=== PATIENT | male | born 1995 | race Caucasian/White ===

== ENCOUNTER 2024-05-11 09:37 | Outpatient (CLI) | payer OTHER, SELFPAY ==
[2024-05-11 19:33] LABS: Trichomonas Vag PCR NOT DETECTED (NOT DETECTE)
[2024-05-11 19:38] LABS: Alanine Aminotransferase 22 U/L (6-50); Alkaline Phosphatase 77 U/L (38-126); Anion Gap 10 mmol/L (4-12); Aspartate Amino Transferase 38 U/L (17-59); Bilirubin,Total 0.7 mg/dL (0.2-1.3); Blood Urea Nitrogen 12 mg/dL (9-20); Calcium 9.5 mg/dL (8.4-10.2); Carbon Dioxide 27 mmol/L (22-30); Chloride 98 mmol/L (98-107); Cholesterol 268 mg/dL (0-200); Estimated Glomerular Filt Rate > 60; Glucose 308 mg/dL (65-110); HDL Direct 35 mg/dL; Potassium 3.7 mmol/L (3.4-5.0); Sodium 135 mmol/L (137-145); Triglycerides 384 mg/dL (<150)
[2024-05-11 19:40] LABS: HIV 1/2 Ab P24 Ag Result Negative (Negative)
[2024-05-11 19:44] LABS: MALB Creatinine Ratio 92.9 mg/g (0-30); Microalbumin Urine Random 168.2 mg/L (0-16.7)
[2024-05-11 19:47] LABS: Hepatitis C Virus Antibody Negative (Negative)
[2024-05-11 19:48] LABS: Hemoglobin A1C 11.1 % (<5.7)
[2024-05-11 19:51] LABS: LDL Cholesterol Direct 151 mg/dL
[2024-05-11 19:57] LABS: Chlamydia trachomatis NOT DETECTED (NOT DETECTE); Neisseria gonorrhoeae PCR NOT DETECTED (NOT DETECTE)
[2024-05-12 14:21] LABS: Rapid Plasma Reagin Non-Reactive (NonReactive)
== END 2024-05-11 09:38 | disposition home or self-care (01) ==
LOC: ANHBWCLAB 09:39
PROVIDERS: PCP Nurse Practitioner Adult Health; Visit Provider Nurse Practitioner Adult Health
DX: E11.9 Type 2 diabetes mellitus without complications (principal); Z13.9 Encounter for screening, unspecified; Z11.3 Encounter for screening for infections with a predominantly sexual mode of transmission
CPT/HCPCS: 36415; 80053; 80061; 82043; 82565; 82607; 83036; 84443; 86592; 86695; 86696; 86703; 86803; 87491; 87591; 87661; G0432

== ENCOUNTER 2024-06-09 08:06 | Outpatient (RCR) | payer OTHER, SELFPAY ==
[2024-06-09 08:54] VITALS: BMI 29.1
[2024-06-09 08:55] VITALS: BMI 29.1
== END 2024-09-05 13:15 | disposition home or self-care (01) ==
LOC: ANHDMC 08:06
PROVIDERS: PCP Nurse Practitioner Adult Health; Visit Provider Nurse Practitioner Adult Health
DX: E11.9 Type 2 diabetes mellitus without complications (principal); Z71.3 Dietary counseling and surveillance
CPT/HCPCS: 97802

== ENCOUNTER 2024-06-10 10:31 | Outpatient (CLI) | payer OTHER, SELFPAY ==
--- NOTE | ~2024-06-10 | US_ITS ---
Limited Abdominal Sonogram: Real-time sonographic imaging of the right upper quadrant was performed. Clinical History: Right upper quadrant pain Findings: The liver appears echogenic, with no evidence of mass lesion or bile duct dilatation. Main portal vein demonstrates normal direction of flow. The gallbladder is well distended, and appears no rmal with no evidence of gallstone or wall thickening. The common bile duct measures 3 mm. The visua lized pancreas, aorta, and IVC are unremarkable. Impression: Diffuse fatty infiltration of the liver. Reviewed, dictated and finalized at location M. [employer] Impression: Diffuse fatty infiltration of the liver.
== END 2024-06-10 10:32 | disposition home or self-care (01) ==
LOC: MICIMG 10:32
PROVIDERS: PCP Nurse Practitioner Adult Health; Visit Provider Nurse Practitioner Adult Health
DX: K76.0 Fatty (change of) liver, not elsewhere classified (principal)
CPT/HCPCS: 76705

== ENCOUNTER 2024-06-13 13:30 | Outpatient (CLI) | payer OTHER, SELFPAY ==
[2024-06-13 19:01] LABS: Alanine Aminotransferase 22 U/L (6-50); Albumin Level 4.9 g/dL (3.5-5.1); Alkaline Phosphatase 60 U/L (38-126); Anion Gap 9 mmol/L (4-12); Aspartate Amino Transferase 43 U/L (17-59); Bilirubin,Total 0.7 mg/dL (0.2-1.3); Blood Urea Nitrogen 11 mg/dL (9-20); Calcium 9.6 mg/dL (8.4-10.2); Carbon Dioxide 29 mmol/L (22-30); Chloride 101 mmol/L (98-107); Cholesterol 130 mg/dL (0-200); Estimated Glomerular Filt Rate > 60; Glucose 95 mg/dL (65-110); HDL Direct 35 mg/dL; Potassium 4.8 mmol/L (3.4-5.0); Sodium 139 mmol/L (137-145); Triglycerides 142 mg/dL (<150)
[2024-06-13 19:12] LABS: LDL Cholesterol Direct 59 mg/dL
== END 2024-06-13 13:31 | disposition home or self-care (01) ==
LOC: ANHBWCLAB 13:32
PROVIDERS: PCP Nurse Practitioner Adult Health; Visit Provider Nurse Practitioner Adult Health
DX: E78.5 Hyperlipidemia, unspecified (principal)
CPT/HCPCS: 36415; 80053; 80061

== ENCOUNTER 2024-08-18 09:38 | Outpatient (CLI) | payer OTHER, SELFPAY ==
[2024-08-18 19:00] LABS: Alanine Aminotransferase 16 U/L (6-50); Albumin Level 4.8 g/dL (3.5-5.1); Alkaline Phosphatase 79 U/L (38-126); Anion Gap 12 mmol/L (4-12); Aspartate Amino Transferase 37 U/L (17-59); Bilirubin,Total 0.6 mg/dL (0.2-1.3); Blood Urea Nitrogen 9 mg/dL (9-20); Calcium 9.8 mg/dL (8.4-10.2); Carbon Dioxide 29 mmol/L (22-30); Chloride 100 mmol/L (98-107); Cholesterol 137 mg/dL (0-200); Estimated Glomerular Filt Rate > 60; Glucose 105 mg/dL (65-110); HDL Direct 43 mg/dL; Potassium 4.8 mmol/L (3.4-5.0); Sodium 141 mmol/L (137-145); Triglycerides 126 mg/dL (<150)
[2024-08-18 19:11] LABS: LDL Cholesterol Direct 79 mg/dL
[2024-08-18 20:01] LABS: Creatinine Urine 163.3 mg/dL
[2024-08-18 20:17] LABS: Microalbumin Urine Random 31.1 mg/L (0-16.7)
[2024-08-18 21:21] LABS: Hemoglobin A1C 5.6 % (<5.7)
== END 2024-08-18 09:39 | disposition home or self-care (01) ==
LOC: ANHBWCLAB 09:40
PROVIDERS: PCP Nurse Practitioner Adult Health; Visit Provider Nurse Practitioner Adult Health
DX: E11.9 Type 2 diabetes mellitus without complications (principal)
CPT/HCPCS: 36415; 80053; 80061; 82043; 82565; 83036

== ENCOUNTER 2025-03-07 06:49 | Outpatient (CLI) | payer OTHER, SELFPAY ==
--- OUTSIDE RECORDS SUMMARY | 2025-03-07 06:52 | XMS_ITS | Patient Health Record ---
Author Organization [facility] [place] [facility] Address [facility] [facility] [address] [place] [address] Care Team Providers Care Director Government Name Role Phone Aida Levin APRN Primary Care Provider Cassia Westbrook Unavailable [phone] JuanGideon cooper Unavailable [phone] Joseph Jacob Unavailable [phone] Allergies Allergen (clinical drug ingredient) Drug/Non Drug Allergy documented on EMR Reaction Allergy Type Onset Date Status Penicillin Unknown Drug Allergy Active Results Component Value Reference Range Flag Notes Validity Testing Reviewed date:12/04/2024 07:58:57 PM Interpretation: Performing Lab:[address] [place] [address], [address] [place] [address], Director - [id number] Notes/Report: Not Medicated Consistent Not Medicated Consistent Not Medicated Consistent Not Medicated Consistent Specific Blue Eye 1.006 1.003 - 1.030 pH 5.9 3.0 - 10.9 Oxidants -4 200 g/mL Creatinine 40.4 20.0 - 300.0 mg/dL Stimulants Reviewed date:12/04/2024 07:58:57 PM Interpretation: Performing Lab: Notes/Report: Phentermine NEGATIVE 100.0 ng/mL Not Medicate d Consistent Methylphenidate NEGATIVE 50.0 ng/mL Not Medic ated Consistent Methamphetamine NEGATIVE 100.0 ng/mL Not Medi cated Consistent Amphetamine 1862.5 100.0 ng/mL POSITIVE Medicated Consistent Amphetamine Reviewed date:12/04/2024 07:58:57 PM Interpretation: Performing Lab: Notes/Report: An exception occurred while processing this report and so it has incomplete data. Please contact [employer] for assistance. PDF Report [email or web address] UDT Reviewed date:10/03/2024 08:53:43 AM Interpretation: Performing Lab: Notes/Report: THC N 0 - 50 ng/ml Cocaine N 0 - 300 ng/ml Amphetamine P 0 - 1000 ng/ml Buprenorphine (BUP) N 0 - 10 ng/ml Secobarbital (Bar) N 0 - 300 ng/ml Oxazepam (BZO) N 0 - 300 ng/ml 9-nexgftcbqi-8,0-twmuefgj-3, 3-diph enylpyrrolidine (EDDP) N 0 - 300 ng/ml Methamphetamine (MET) N 0 - 1000 ng/ml Methylenedioxymethamphetamin e (MDMA) N 0 - 500 ng/ml Morphine (MOP 300/[id number]) N 0 - 300 ng/ml Methadone (MTD) N 0 - 300 ng/ml Phencyclidine (PCP) N 0 - 25 ng/ml Nortriptyline (TCA) N 0 - 1000 ng/ml Oxycodone N 0 - 300 ng/ml x N 0 - 300 ng/ml UDT Reviewed date:11/29/2024 01:20:16 PM Interpretation: Performing Lab: Notes/Report: THC p 0 - 50 ng/ml Cocaine n 0 - 300 ng/ml Amphetamine p 0 - 1000 ng/ml Buprenorphine (BUP) n 0 - 10 ng/ml Secobarbital (Bar) n 0 - 300 ng/ml Oxazepam (BZO) n 0 - 300 ng/ml 9-lzjbnprvfi-5,5-yaldwmlh-1, 3-diph enylpyrrolidine (EDDP) n 0 - 300 ng/ml Methamphetamine (MET) n 0 - 1000 ng/ml Methylenedioxymethamphetamin e (MDMA) n 0 - 500 ng/ml Morphine (MOP 300/[id number]) n 0 - 300 ng/ml Methadone (MTD) n 0 - 300 ng/ml Phencyclidine (PCP) n 0 - 25 ng/ml Nortriptyline (TCA) n 0 - 1000 ng/ml Oxycodone n 0 - 300 ng/ml x n 0 - 300 ng/ml UDT Reviewed date:05/12/2024 04:35:39 PM Interpretation: Performing Lab: Notes/Report: THC NEG 0 - 50 ng/ml Cocaine NEG 0 - 300 ng/ml Amphetamine NEG 0 - 1000 ng/ml Buprenorphine (BUP) NEG 0 - 10 ng/ml Secobarbital (Bar) NEG 0 - 300 ng/ml Oxazepam (BZO) NEG 0 - 300 ng/ml 2-ffticchliu-2,8-qywbwoaj-6, 3-diph enylpyrrolidine (EDDP) NEG 0 - 300 ng/ml Methamphetamine (MET) NEG 0 - 1000 ng/ml Methylenedioxymethamphetamin e (MDMA) NEG 0 - 500 ng/ml Morphine (MOP 300/[id number]) NEG 0 - 300 ng/ml Methadone (MTD) NEG 0 - 300 ng/ml Phencyclidine (PCP) NEG 0 - 25 ng/ml Nortriptyline (TCA) NEG 0 - 1000 ng/ml Oxycodone NEG 0 - 300 ng/ml x NEG 0 - 300 ng/ml UDT Reviewed date:08/03/2024 12:58:01 PM Interpretation: Performing Lab: Notes/Report: THC N 0 - 50 ng/ml Cocaine N 0 - 300 ng/ml Amphetamine N 0 - 1000 ng/ml Buprenorphine (BUP) N 0 - 10 ng/ml Secobarbital (Bar) N 0 - 300 ng/ml Oxazepam (BZO) N 0 - 300 ng/ml 3-kllialydoa-8,1-sopwdhyi-2, 3-diph enylpyrrolidine (EDDP) N 0 - 300 ng/ml Methamphetamine (MET) N 0 - 1000 ng/ml Methylenedioxymethamphetamin e (MDMA) N 0 - 500 ng/ml Morphine (MOP 300/[id number]) N 0 - 300 ng/ml Methadone (MTD) N 0 - 300 ng/ml Phencyclidine (PCP) N 0 - 25 ng/ml Nortriptyline (TCA) N 0 - 1000 ng/ml Oxycodone N 0 - 300 ng/ml x N 0 - 300 ng/ml UDT Reviewed date:05/20/2024 08:48:46 AM Interpretation: Performing Lab: Notes/Report: THC n 0 - 50 ng/ml Cocaine n 0 - 300 ng/ml Amphetamine n 0 - 1000 ng/ml Buprenorphine (BUP) n 0 - 10 ng/ml Secobarbital (Bar) n 0 - 300 ng/ml Oxazepam (BZO) n 0 - 300 ng/ml 5-nxfgddpxbr-0,9-ghuqtbry-6, 3-diph enylpyrrolidine (EDDP) n 0 - 300 ng/ml Methamphetamine (MET) n 0 - 1000 ng/ml Methylenedioxymethamphetamin e (MDMA) n 0 - 500 ng/ml Morphine (MOP 300/[id number]) n 0 - 300 ng/ml Methadone (MTD) n 0 - 300 ng/ml Phencyclidine (PCP) n 0 - 25 ng/ml Nortriptyline (TCA) n 0 - 1000 ng/ml Oxycodone n 0 - 300 ng/ml x n 0 - 300 ng/ml Reason For Referral No Information Medications Medication SIG (Take, Route, Frequency, Duration) Notes Start Date End Date Status Amphetamine-Dextroamphet ER 20 MG Capsule Extended Release 24 Hour 1 capsule every morning Orally Once a day; Duration: 30 days 02/15/2025 Active Jardiance 25 MG Tablet Oral; Duration: 90 Days Active metFORMIN HCl ER 500 MG Tablet Extended Release 24 Hour Oral; Duration: 90 Days Acti ve Mounjaro 2.5 MG/0.5ML Solution Auto-injector ADMINISTER 2.5 MG UNDER THE SKIN WEEKLY FOR 4 WEEKS Subcutaneous; Duration: 28 Days Active Rosuvastatin Calcium 10 MG Tablet TAKE 1 TABLET BY MOUTH EVERY DAY AT BEDTIME Oral; Duration: 90 Days Active Sertraline HCl 50 MG Tablet 1 tablet Ora lly Once a day; Duration: 90 days Active Social History Tobacco Use: Social History Observation Description Date Details (start date - stop date) Unknown Sex Assigned At : Social History Observation Description Sex Assigned At Male Social History Miscellaneous: Social Info Question Answer Notes Advance Care Planning Are you your own decision-maker Yes Do you have Power of Mortgage Branch Manager for Health or [facility]? No Safety issues: Are there any firearms in the house? No Social History Social Info Question Answer Notes Household: Marital Status: Single Number of Adults in household: 2 Number of Children in Household: 0 Level of Education: Finished High School Drug/Alcohol: Social Info Question Answer Notes Drugs Have you used drugs other than those for medical reasons in the past 12 months? No Methamphetamine? No Crack? No LSD? No Ecstacy? No Prescription opiates? No Marijuana? Yes Ketamine? Yes PCP? No Is there a minor (18 years or younger) at risk at home? No Are you still using? No AUDIT-C (Standard) Interpretation Positive Did you have a drink containing alcohol in the p ast year? Yes How often did you have six or more drinks on one occasion in the past year? Never (0 point) How many drinks did you have on a typical day when you were drinking in the past year? 1 or 2 drinks (0 point) How often did you have a drink containing alcohol in the past year? Monthly or less (1 point) Caffeine Intake: 1-2 cups per day Tobacco Use: Social Info Question Answer Notes Tobacco Control (Standard) Tobacco use: Uses tobacco i n other forms When did you start smoking? 04/20/2018 Additional Findings: Tobacco user e-cigarette Additional Details Category Social Info Options Details Miscellaneous: Occupation: Quality Contr ol Drug/Alcohol: Do you smoke marijuana? on ce or twice a year. Do you drink alcohol? No Problems Problem Type SNOMED Code ICD Code Onset Dates Problem Status W/U Status Risk Notes Problem Attention deficit hyperactivity disorder, combined type (72346809) Attention-deficit hyperactivity disorder, combined type (F90.2) Active confirmed Problem Generalized anxiety disorder (62282966) KAYLENE (generalized anxiety disorder) (F41.1) Active confirmed Problem Mild recurrent major depression (34899576) MDD (major depressive disorder), recurrent episode, mild (F33.0) Active confirmed Problem Attention deficit hyperactivity disorder (005327270) ADHD (attention deficit hyperactivity disorder) evaluation (Z13.39) Active confirmed Problem Tobacco use (179414327) Vapes nicotine containing substance (Z72.0) Active confirmed Vital Signs Heart Rate 82 /min 01/31/2025 Blood pressure diastolic 76 mm Hg 01/31/2025 Weight-kg 88.45 kg 01/31/2025 Blood pressure systolic 119 mm Hg 01/31/2025 Weight 195 lbs 01/31/2025 Procedures Procedure Date Ordered Date Performed Result Body Sit e ADHD Testing 05/12/2024 N/A ADHD Testing 05/18/2024 N/A Encounters Encounter Location Date Provider Diagnosis [facility] [address] [facility] [address] [place] [address] 05/12/2024 Joseph Jacob ADHD (attention defi cit hyperactivity disorder) evaluation Z13.39 ; MDD (major depressive disorder), recurrent episode, mild F33.0 and Vapes nicotine containing substance Z72.0 [facility] [place] [facility] [address] [facility] [address] [place] [address] 05/18/2024 Gideon Martinez ADHD (attention defi cit hyperactivity disorder) evaluation Z13.39 [facility] [address] [place] [address] 05/26/2024 Joseph Cecil ADHD (attention defi cit hyperactivity disorder), combined type F90.2 and Vapes nicotine containing substance Z72.[address] [place] [address] 08/03/2024 Cassiaabdiel Courtney MDD (major depressiv e disorder), recurrent episode, mild F33.0 and Attention-deficit hyperactivity disorder, combined type F90.2 [place] [address] [facility] [address] [place] [address] 09/30/2024 Cassiaabdiel Courtney Encounter for screen ing for depression Z13.31 ; Encounter for screening for cardiovascular disorders Z13.6 ; MDD (major depressive disorder), recurrent episode, mild F33.0 and Attention-deficit hyperactivity disorder, combined type F90.[address] [facility] [address] [place] [address] 10/31/2024 Cassia Kurilla Nicotine use Z72.0 ; Encounter for screening for depression Z13.31 ; Encounter for screening for cardiovascular disorders Z13.6 ; MDD (major depressive disorder), recurrent episode, mild F33.0 and Attention-deficit hyperactivity disorder, combined type F90.2 [place] [address] [facility] [address] [place] [address] 11/29/2024 Cassia Courtney MDD (major depressiv e disorder), recurrent episode, mild F33.0 ; Attention-deficit hyperactivity disorder, combined type F90.2 ; KAYLENE (generalized anxiety disorder) F41.1 ; Negative depression screening Z13.31 ; Nicotine use Z72.0 ; Encounter for screening for cardiovascular disorders Z13.6 and Encounter for screening for depression Z13.[address] [facility] [address] [place] [address] 01/02/2025 Cassia Roz [place] [address] [facility] [address] [place] [address] 01/31/2025 Cassia Kurilla Nicotine use Z72.0 ; Attention-deficit hyperactivity disorder, combined type F90.2 ; MDD (major depressive disorder), recurrent episode, mild F33.0 and KAYLENE (generalized anxiety disorder) F41.1 [facility] [address] [place] [address] 05/26/2024 Joseph Clubb [facility] [address] [place] [address] 01/03/2025 Cassia Courtney [facility] [address] [place] [address] 01/03/2025 Cassia Courtney Attention-deficit hyperactivity disorder, combined type F90.2 and MDD (major depressive disorder), recurrent episode, mild F33.0 [facility] [address] [place] [address] 02/15/2025 Cassia Courtney Attention-deficit hyperactivity disorder, combined type F90.2 [place] [address] [place] [address] 02/15/2025 Cassia Courtney Assessments Encounter Date Diagnosis (ICD Code) Assessment Notes Treatment Notes Treatment Clinical Notes Section Notes 08/03/2024 MDD (major depressive disorder), recurrent episode, mild (ICD-10 - F33.0) 05/12/2024 MDD (major depressive disorder), recurrent episode, mild (ICD-10 - F33.0) 1. ADHD (suspected) - Plan: Patient to take a computer-based test to evaluate for ADHD. He will print the results and bring them to the next appointment for further discussion and evaluation. 2. Depression and Anxiety - Plan: Continue monitoring his response to ketamine therapy (100 mg trochee daily). Reassess need for additional interventions during follow-up appointments. Discuss potential benefits of combining ketamine with an antidepressant for optimal results. 3. Difficulty concentrating and forgetfulness - Plan: Evaluate his ADHD test results during next appointment. Consider non-stimulant medications such as Qelbree, Strattera, or Wellbutrin if ADHD is confirmed. Note: Patient had negative experience with Wellbutrin in the past, reporting increased anxiety. 4. Tobacco use (vaping) - Plan: Discuss potential strategies for quitting vaping during follow-up appointments. Consider medications such as Wellbutrin to aid in smoking cessation if appropriate. He expressed interest in quitting. 5. Type 2 Diabetes - Plan: Patient awaiting call from PCP to start diabetes medication. Monitor his response to prescribed medication and coordinate care with PCP as needed. He has not seen a PCP since 2019 and is now focusing on taking care of his health. 6. Allergy to Penicillin - Plan: Document patient's allergy to penicillin in medical record and avoid prescribing medications containing penicillin. 7. Occasional marijuana use - Plan: Advise him to completely stop marijuana use- urine drug screen negative for THC. Follow-up: - Plan: Schedule follow-up appointment after patient completes ADHD test and prints results. Review test results, discuss potential treatment options, and address any additional concerns or questions during follow-up appointment. - pt requested to take the test before initiating medication interventions. 05/12/2024 ADHD (attention deficit hyperactivity disorder) evaluation (ICD-10 - Z13.39) 1. ADHD (suspected) - Plan: Patient to take a computer-based test to evaluate for ADHD. He will print the results and bring them to the next appointment for further discussion and evaluation. 2. Depression and Anxiety - Plan: Continue monitoring his response to ketamine therapy (100 mg trochee daily). Reassess need for additional interventions during follow-up appointments. Discuss potential benefits of combining ketamine with an antidepressant for optimal results. 3. Difficulty concentrating and forgetfulness - Plan: Evaluate his ADHD test results during next appointment. Consider non-stimulant medications such as Qelbree, Strattera, or Wellbutrin if ADHD is confirmed. Note: Patient had negative experience with Wellbutrin in the past, reporting increased anxiety. 4. Tobacco use (vaping) - Plan: Discuss potential strategies for quitting vaping during follow-up appointments. Consider medications such as Wellbutrin to aid in smoking cessation if appropriate. He expressed interest in quitting. 5. Type 2 Diabetes - Plan: Patient awaiting call from PCP to start diabetes medication. Monitor his response to prescribed medication and coordinate care with PCP as needed. He has not seen a PCP since 2019 and is now focusing on taking care of his health. 6. Allergy to Penicillin - Plan: Document patient's allergy to penicillin in medical record and avoid prescribing medications containing penicillin. 7. Occasional marijuana use - Plan: Advise him to completely stop marijuana use- urine drug screen negative for THC. Follow-up: - Plan: Schedule follow-up appointment after patient completes ADHD test and prints results. Review test results, discuss potential treatment options, and address any additional concerns or questions during follow-up appointment. - pt requested to take the test before initiating medication interventions. 05/18/2024 ADHD (attention deficit hyperactivity disorder) evaluation (ICD-10 - Z13.39) 05/26/2024 ADHD (attention deficit hyperactivity disorder), combined type (ICD-10 - F90.2) Assessment and plan reviewed with patient Call for problems with medication, side effects or need for dosage change Compliance issues reviewed Discussed the risks/benefits of this medication Discussed medication side effects Return if symptoms worsen Treatment options reviewed. discussed that it can take weeks to see full therapeutic effects of psychotropic medications. discussed when to seek emergency services. discussed crisis prevention hotline 988. 1. ADHD - Diagnosed with ADHD based on testing results. - Plan: a. Start methylphenidate extended-release 20 mg once daily. b. Monitor for side effects (appetite loss, heart palpitations, fatigue). c. Inform patient about potential appetite return around 3 PM if taken at 8 AM. d. Follow up with PAUL Ling in one month to assess medication response. 2. Anxiety - Reports moderate anxiety. - Plan: a. Monitor anxiety levels during follow-up appointments. b. Assess impact of ADHD treatment on anxiety levels. 3. Sleep - Reports 6-7 hours of sleep per night. - Plan: a. Encourage good sleep hygiene. b. Aim for 7-9 hours of sleep per night. c. Monitor sleep patterns during follow-up appointments. 4. Follow-Up - Schedule follow-up appointment with PAUL Ling - Assess response to methylphenidate. 5. nicotine use patient vapes nicotine containing substances. discussed the impact nicotine has on mental health discussed the risk of nicotine disruption in medication metabolism. 05/26/2024 Vapes nicotine containing substance (ICD-10 - Z72.0) 1. ADHD - Diagnosed with ADHD based on testing results. - Plan: a. Start methylphenidate extended-release 20 mg once daily. b. Monitor for side effects (appetite loss, heart palpitations, fatigue). c. Inform patient about potential appetite return around 3 PM if taken at 8 AM. d. Follow up with PAUL Ling in one month to assess medication response. 2. Anxiety - Reports moderate anxiety. - Plan: a. Monitor anxiety levels during follow-up appointments. b. Assess impact of ADHD treatment on anxiety levels. 3. Sleep - Reports 6-7 hours of sleep per night. - Plan: a. Encourage good sleep hygiene. b. Aim for 7-9 hours of sleep per night. c. Monitor sleep patterns during follow-up appointments. 4. Follow-Up - Schedule follow-up appointment with PAUL Ling - Assess response to methylphenidate. 5. nicotine use patient vapes nicotine containing substances. discussed the impact nicotine has on mental health discussed the risk of nicotine disruption in medication metabolism. 08/03/2024 Attention-defici t hyperactivity disorder, combined type (ICD-10 - F90.2) 09/30/2024 Encounter for screening for depression (ICD-10 - Z13.31) 11/29/2024 Attention-defici t hyperactivity disorder, combined type (ICD-10 - F90.2) ADHD Stimulant Education -Discussed with patient risk of misuse, abuse, and addiction before prescribing stimulant medicines. -Counseled not to share their prescribed stimulant with anyone else. -Educated patient will monitor during treatment: regularly assess and monitor them for signs and symptoms of nonmedical use, addiction, and potential diversion, which may be evidenced by more frequent renewal requests and medication metabolites absent from urine drug screens. -Random UDS (at least every three months or more frequently deemed by provider). -Per office policy, only prescribed to local pharmacy in [place], no early refills on control substance. 11/29/2024 MDD (major depressive disorder), recurrent episode, mild (ICD-10 - F33.0) SSRI/SNRI side effects discussed including but not limited to, gastric upset, nausea, vomiting, diarrhea and/or constipation, weight changes, sexual side effects including loss of libido, increased suicidal thoughts/behavi ors in children and young adults, and serotonin syndrome. 01/03/2025 Attention-defici t hyperactivity disorder, combined type (ICD-10 - F90.2) 01/31/2025 Nicotine use (ICD-10 - Z72.0) 02/15/2025 Attention-defici t hyperactivity disorder, combined type (ICD-10 - F90.2) 10/31/2024 Nicotine use (ICD-10 - Z72.0) 10/31/2024 Encounter for screening for depression (ICD-10 - Z13.31) 01/03/2025 MDD (major depressive disorder), recurrent episode, mild (ICD-10 - F33.0) 01/31/2025 Attention-defici t hyperactivity disorder, combined type (ICD-10 - F90.2) ADHD Stimulant Education -Discussed with patient risk of misuse, abuse, and addiction before prescribing stimulant medicines. -Counseled not to share their prescribed stimulant with anyone else. -Educated patient will monitor during treatment: regularly assess and monitor them for signs and symptoms of nonmedical use, addiction, and potential diversion, which may be evidenced by more frequent renewal requests and medication metabolites absent from urine drug screens. -Random UDS (at least every three months or more frequently deemed by provider). -Per office policy, only prescribed to local pharmacy in [place], no early refills on control substance. 09/30/2024 Encounter for screening for cardiovascular disorders (ICD-10 - Z13.6) 11/29/2024 KAYLENE (generalized anxiety disorder) (ICD-10 - F41.1) 05/12/2024 Vapes nicotine containing substance (ICD-10 - Z72.0) [id number] - Yes [place] Tobacco Quitline Call a Smoking Quitline The [employer] [place]'s Smoking Quitline, (1-943-00R-QUIT ) Smokefree.gov, which connects you with your State's Quitline, (4-073-HDTFNBU) [facility] Smoking Quitline, (3-490-POCSNDL) Advised patient to quit smoking 1. ADHD (suspected) - Plan: Patient to take a computer-based test to evaluate for ADHD. He will print the results and bring them to the next appointment for further discussion and evaluation. 2. Depression and Anxiety - Plan: Continue monitoring his response to ketamine therapy (100 mg trochee daily). Reassess need for additional interventions during follow-up appointments. Discuss potential benefits of combining ketamine with an antidepressant for optimal results. 3. Difficulty concentrating and forgetfulness - Plan: Evaluate his ADHD test results during next appointment. Consider non-stimulant medications such as Qelbree, Strattera, or Wellbutrin if ADHD is confirmed. Note: Patient had negative experience with Wellbutrin in the past, reporting increased anxiety. 4. Tobacco use (vaping) - Plan: Discuss potential strategies for quitting vaping during follow-up appointments. Consider medications such as Wellbutrin to aid in smoking cessation if appropriate. He expressed interest in quitting. 5. Type 2 Diabetes - Plan: Patient awaiting call from PCP to start diabetes medication. Monitor his response to prescribed medication and coordinate care with PCP as needed. He has not seen a PCP since 2019 and is now focusing on taking care of his health. 6. Allergy to Penicillin - Plan: Document patient's allergy to penicillin in medical record and avoid prescribing medications containing penicillin. 7. Occasional marijuana use - Plan: Advise him to completely stop marijuana use- urine drug screen negative for THC. Follow-up: - Plan: Schedule follow-up appointment after patient completes ADHD test and prints results. Review test results, discuss potential treatment options, and address any additional concerns or questions during follow-up appointment. - pt requested to take the test before initiating medication interventions. 09/30/2024 MDD (major depressive disorder), recurrent episode, mild (ICD-10 - F33.0) 11/29/2024 Negative depression screening (ICD-10 - Z13.31) 01/31/2025 MDD (major depressive disorder), recurrent episode, mild (ICD-10 - F33.0) SSRI/SNRI side effects discussed including but not limited to, gastric upset, nausea, vomiting, diarrhea and/or constipation, weight changes, sexual side effects including loss of libido, increased suicidal thoughts/behavi ors in children and young adults, and serotonin syndrome. 10/31/2024 Encounter for screening for cardiovascular disorders (ICD-10 - Z13.6) 10/31/2024 MDD (major depressive disorder), recurrent episode, mild (ICD-10 - F33.0) SSRI/SNRI side effects discussed including but not limited to, gastric upset, nausea, vomiting, diarrhea and/or constipation, weight changes, sexual side effects including loss of libido, increased suicidal thoughts/behavi ors in children and young adults, and serotonin syndrome. 01/31/2025 KAYLENE (generalized anxiety disorder) (ICD-10 - F41.1) 11/29/2024 Nicotine use (ICD-10 - Z72.0) 09/30/2024 Attention-defici t hyperactivity disorder, combined type (ICD-10 - F90.2) ADHD Stimulant Education -Discussed with patient risk of misuse, abuse, and addiction before prescribing stimulant medicines. -Counseled not to share their prescribed stimulant with anyone else. -Educated patient will monitor during treatment: regularly assess and monitor them for signs and symptoms of nonmedical use, addiction, and potential diversion, which may be evidenced by more frequent renewal requests and medication metabolites absent from urine drug screens. -Random UDS (at least every three months or more frequently deemed by provider). -Per office policy, only prescribed to local pharmacy in [place], no early refills on control substance. 11/29/2024 Encounter for screening for cardiovascular disorders (ICD-10 - Z13.6) 10/31/2024 Attention-defici t hyperactivity disorder, combined type (ICD-10 - F90.2) ADHD Stimulant Education -Discussed with patient risk of misuse, abuse, and addiction before prescribing stimulant medicines. -Counseled not to share their prescribed stimulant with anyone else. -Educated patient will monitor during treatment: regularly assess and monitor them for signs and symptoms of nonmedical use, addiction, and potential diversion, which may be evidenced by more frequent renewal requests and medication metabolites absent from urine drug screens. -Random UDS (at least every three months or more frequently deemed by provider). -Per office policy, only prescribed to local pharmacy in [place], no early refills on control substance. 11/29/2024 Encounter for screening for depression (ICD-10 - Z13.31) 05/12/2024 Other Learning About Depression Screening material was printed 1. ADHD (suspected) - Plan: Patient to take a computer-based test to evaluate for ADHD. He will print the results and bring them to the next appointment for further discussion and evaluation. 2. Depression and Anxiety - Plan: Continue monitoring his response to ketamine therapy (100 mg trochee daily). Reassess need for additional interventions during follow-up appointments. Discuss potential benefits of combining ketamine with an antidepressant for optimal results. 3. Difficulty concentrating and forgetfulness - Plan: Evaluate his ADHD test results during next appointment. Consider non-stimulant medications such as Qelbree, Strattera, or Wellbutrin if ADHD is confirmed. Note: Patient had negative experience with Wellbutrin in the past, reporting increased anxiety. 4. Tobacco use (vaping) - Plan: Discuss potential strategies for quitting vaping during follow-up appointments. Consider medications such as Wellbutrin to aid in smoking cessation if appropriate. He expressed interest in quitting. 5. Type 2 Diabetes - Plan: Patient awaiting call from PCP to start diabetes medication. Monitor his response to prescribed medication and coordinate care with PCP as needed. He has not seen a PCP since 2019 and is now focusing on taking care of his health. 6. Allergy to Penicillin - Plan: Document patient's allergy to penicillin in medical record and avoid prescribing medications containing penicillin. 7. Occasional marijuana use - Plan: Advise him to completely stop marijuana use- urine drug screen negative for THC. Follow-up: - Plan: Schedule follow-up appointment after patient completes ADHD test and prints results. Review test results, discuss potential treatment options, and address any additional concerns or questions during follow-up appointment. - pt requested to take the test before initiating medication interventions. 08/03/2024 Other Start Adderall ER 15mg daily for ADHD management. -minimal improvement with methyphenidate, discontinue Patient educated on all medications including potential benefits, side effects, risks. Educated on proper dosing schedule and importance of compliance. [place]MP report checked and consistent with prescription history, no controlled substance prescriptions from other providers. UDT completed today Previous notes from Joseph MILLER reviewed -Assessment and treatment plan reviewed with patient. -Compliance with treatment plan importance discussed. -Discussed the risks/benefits of this medication -Discussed medication side effects. -Contact office if symptoms worsen. -Discussed that it can take up to 6-8 weeks to see full therapeutic effects of psychotropic medications. -Crisis prevention hotline 988. 09/30/2024 Other Increase Adderall to 20mg daily for ADHD management Patient educated on all medications including potential benefits, side effects, risks. Educated on proper dosing schedule and importance of compliance. [place] report checked and consistent with prescription history, no controlled substance prescriptions from other providers. -Assessment and treatment plan reviewed with patient. -Compliance with treatment plan importance discussed. -Discussed the risks/benefits of this medication -Discussed medication side effects. -Contact office if symptoms worsen. -Discussed that it can take up to 6-8 weeks to see full therapeutic effects of psychotropic medications. -Crisis prevention hotline 988. 10/31/2024 Other Start sertraline 50mg daily for anxiety, mood -discussed to start with half a tablet daily (25mg) for 6 days then increase to 50mg. Patient educated on all medications including potential benefits, side effects, risks. Educated on proper dosing schedule and importance of compliance. [place] report checked and consistent with prescription history, no controlled substance prescriptions from other providers. -Assessment and treatment plan reviewed with patient. -Compliance with treatment plan importance discussed. -Discussed the risks/benefits of this medication -Discussed medication side effects. -Contact office if symptoms worsen. -Discussed that it can take up to 6-8 weeks to see full therapeutic effects of psychotropic medications. -Crisis prevention hotline 988. 11/29/2024 Other Increase sertraline to 75mg daily for mood, anxiety. Refill for Adderall sent in today Patient educated on all medications including potential benefits, side effects, risks. Educated on proper dosing schedule and importance of compliance. [place] report checked and consistent with prescription history, no controlled substance prescriptions from other providers. Send UDT out for confirmation -Assessment and treatment plan reviewed with patient. -Compliance with treatment plan importance discussed. -Discussed the risks/benefits of this medication -Discussed medication side effects. -Contact office if symptoms worsen. -Discussed that it can take up to 6-8 weeks to see full therapeutic effects of psychotropic medications. -Crisis prevention hotline 988. 01/31/2025 Other Decrease sertraline to 50mg daily, monitor for improvement in side effects -if s/e improve, plan to cross taper with alternative SSRI Patient educated on all medications including potential benefits, side effects, risks. Educated on proper dosing schedule and importance of compliance. [place] report checked and consistent with prescription history, no controlled substance prescriptions from other providers. -Assessment and treatment plan reviewed with patient. -Compliance with treatment plan importance discussed. -Discussed the risks/benefits of this medication -Discussed medication side effects. -Contact office if symptoms worsen. -Discussed that it can take up to 6-8 weeks to see full therapeutic effects of psychotropic medications. -Crisis prevention hotline 988. Plan Of Treatment Pending Test Test Name Order Date ADHD Testing 05/12/2024 ADHD Testing 05/18/2024 Next Appt Details Provider Name:Cassia madera, 03/28/2025 01:15:00 PM, [address], [address], [place], [address], Insurance Providers Payer Name Payer Address Payer Phone Subscriber Number Group Number Insured Name Patient Relationship to Insured Coverage Start Date Coverage End Date Demetrio [address] [place] [phone] [id number] RADHA FIGUEROA Self - patient is the insured Medical (General) History Medical History History ICD Code Past Psychiatric History: Anxiety Disord er,Major Depressive Episode type 2 diabetes mellitus: Yes abdominal aortic aneurysm: No atrial fibrillation: No chronic fatigue syndrome: No essential tremor: No hyperlipidemia: yes hypertension: No Parkinson's disease: No restless leg syndrome: No stroke: No subdural hematoma: No type 1 diabetes mellitus: No vitamin B12 deficiency: No vitamin D deficiency: No hyperlipidemia: No undefined Surgical History Surgery Date(Month/Year) left arm internal fixation surgery
--- OUTSIDE RECORDS SUMMARY | 2025-03-07 06:52 | XMS_ITS | Clinical Summary ---
Author Organization [address] Address [address] [place] [id number] Care Team Providers Care Chef De Partie Name Role Phone No, Physician Primary Care Provider [phone] Allergies Active Allergy Reactions Criticality Noted Date Comments Penicillins Hives High 11/22/2021 HIVES Medications aspirin 81 mg chewable tablet Take 81 mg by mouth 2 (two) times a day 11/29/2021 Active senna-docusate (PERICOLACE) 8.6-50 mg Take 1 tablet by mouth 2 (two) times a day as needed 11/29/2021 Active azithromycin (Zithromax Z-Michael) 250 mg tablet Take 1 tablet (250 mg total) by mouth daily Take first 2 tablets together, then 1 every day until finished. 6 tablet 09/05/2023 Active HYDROcodone-crystal taminophen (NORCO) 5-325 mg per tabletIndicatio ns:Pain Take 1-2 tablets by mouth every 4 (four) hours as needed for pain Do not exceed 8 tablets/day. 15 tablet 09/05/2023 Active Active Problems No known active problems Social History Tobacco Use Types Packs/Day Years Used Date Smoking Tobacco: Never Passive Smoke Exposure: Never Smokeless Tobacco: Current Tobacco Cessation:Ready to Q uit: Not Asked; Counseling Given: Not Answered Alcohol Use Standard Drinks/Week Comments Never 0 (1 standard drink = 0.6 oz pur e alcohol) Personal Safety Answer Date Recorded Have you ever been in or are you currently in a harmful physical or emotional relationship or is someone making you feel afraid or unsafe? 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 Pulse 95 09/05/2023 6:29 AM SPEECH COMMUNICATION PROFESSOR Temperature 36.8 C (98.2 F) 09/05/2023 6:29 AM SPEECH COMMUNICATION PROFESSOR Respiratory Rate 20 09/05/2023 6:29 AM SPEECH COMMUNICATION PROFESSOR Oxygen Saturation 100% 09/05/2023 6:29 AM SPEECH COMMUNICATION PROFESSOR Inhaled Oxygen Concentration - - Weight 108.9 kg (240 lb) 09/05/2023 6:27 AM SPEECH COMMUNICATION PROFESSOR Height 188 cm (6' 2) 06/22/2023 9:31 AM SPEECH COMMUNICATION PROFESSOR Body Mass Index 30.81 06/22/2023 9:31 AM SPEECH COMMUNICATION PROFESSOR Plan of Treatment Health Maintenance Due Date Last Done Comments Depression Screening 1995 Hepatitis C Screening 1995 Varicella Vaccines (2 of 2 - 2-dose childhood series) 04/23/2001 01/29/2001 Regular Well Visit/Exam 18-64 2013 DTaP/Tdap/Td Vaccine (7 - Td or Tdap) 11/23/2019 11/22/2009, 11/05/2000, 10/27/1996, Additional history exists HPV Vaccines (1 - 3-dose SCDM series) 2022 Covid-19 Vaccine ( season) 2024 12/28/2020, 12/07/2020 Influenza Vaccine (#1) 2025 , 05/05/2017, 05/30/2014 Hepatitis B Screening Completed 1995 , 1995, 1995, Additional history exists Pneumococcal vaccine <65 Aged Out No longer eligible based on patient's age to complete this topic Insurance LADONNA [employer]LEGIANCE [employer] Care Teams Chef De Partie Relationship Specialty Start Date End Date No, Physician PCP - General 10/10/22
--- OUTSIDE RECORDS SUMMARY | 2025-03-07 06:52 | XMS_ITS | Clinical Summary ---
Author Organization [facility] Address [address] [address] [place] [phone] Phone Care Team Providers Care Golf [employer] Head Former Name Role Phone Unavailable Primary Care Provider Unavailabl e Active Problems No known active problems Encounters Date Type Department Care Team Description 01/17/2025 External Device Data [facility] ABSTRACTION Provider, Abstract 12/13/2024 External Device Data [facility] ABSTRACTION Provider, Abstract 12/13/2024 External Device Data [facility] ABSTRACTION Provider, Abstract 12/13/2024 Results Follow-Up [facility] [employer] [place] [address] [place] [id number] Anali Jeff MD TSH, CBC WITH DIFFERENTIAL, COMPREHENSIVE METABOLIC PANEL, LIPID PANEL 12/13/2024 External Device Data [facility] ABSTRACTION Provider, Abstract 12/09/2024 9:40 AM CDT Office Visit [facility] [employer] [place] [address] [place] [phone] Screening for condition (Primary Dx) from Last 3 Months Social History Tobacco Use Types Packs/Day Years Used Date Smoking Tobacco: Never Assessed Sex and Gender Information Value Date Recorded Sex Assigned at Not on file 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 Gender Identity Not on file Sexual Orientation Not on file Last Filed Vital Signs Vital Sign Reading Time Taken Comments Blood Pressure 122/66 12/09/2024 9:51 AM CDT Pulse - - Temperature - - Respiratory Rate - - Oxygen Saturation - - Inhaled Oxygen Concentration - - Weight 97.1 kg (214 lb) 12/09/2024 9:51 AM CDT Height 185.4 cm (6' 1) 12/09/2024 9:51 AM CDT Body Mass Index 28.23 12/09/2024 9:51 AM CDT Plan of Treatment Health Maintenance Due Date Last Done Comments HPV VACCINES (1 - Male 3-dos e series) 2010 DTAP/TDAP/TD VACCINES (7 - T d or Tdap) 11/23/2019 11/22/2009, 11/05/2000, 10/27/1996, Additional history exists INFLUENZA VACCINE (#1) 2025 2020, 2016 HEPATITIS B VACCINES Completed 1995, 1995, 1995, Additional history exists Procedures Procedure Name Priority Date/Time Associated Diagnosis Comments LIPID PANEL Routine 12/09/2024 9:40 AM CDT Screening for condition COMPREHENSIVE METABOLIC PANEL Routine 12/09/2024 9:40 AM CDT Screening for condition CBC WITH DIFFERENTIAL Routine 12/09/2024 9:40 AM CDT Screening for condition TSH Routine 12/09/2024 9:40 AM CDT Screening for condition from Last 3 Months Results * CBC WITH DIFFERENTIAL (12/09/2024 9:40 AM CDT) WBC 5.0 3.8 - 10.8 Thousand/u L [facility] RBC 4.90 4.20 - 5.80 Million/uL [facility] HEMOGLOBIN 15.6 13.2 - 17.1 g/dL [facility] HEMATOCRIT 47.4 38.5 - 50.0 % [facility] MCV 96.7 80.0 - 100.0 fL [facility] MCH 31.8 27.0 - 33.0 pg [facility] MCHC 32.9 32.0 - 36.0 g/dL [facility] Comment: For adults, a slight decrease in the calculated MCHC value (in the range of 30 to 32 g/dL) is most likely not clinically significant; however, it should be interpreted with caution in correlation with other red cell parameters and the patient's clinical condition. RDW 12.9 11.0 - 15.0 % [facility] PLATELETS 178 140 - 400 Thousand/u L [facility] MPV 10.6 7.5 - 12.5 fL [facility] NEUTROPHIL ABSOLUTE 2,725 1,500 - 7,800 cells/uL [facility] LYMPHOCYTE ABSOLUTE 1,845 850 - 3,900 cells/uL [facility] MONOCYTE ABSOLUTE 300 200 - 950 cells/uL [facility] EOSINOPHIL ABSOLUTE 90 15 - 500 cells/uL [facility] BASOPHILS ABSOLUTE 40 0 - 200 cells/uL [facility] NEUTROPHIL 54.5 % [facility] LYMPHOCYTES 36.9 % [facility] MONOCYTE 6.0 % [facility] EOSINOPHILS 1.8 % [facility] BASOPHILS 0.8 % [facility] Comment: Test Performed at: [place] [address] [place] [address] [facility] Vo Blood 12/09/2024 9:40 AM CDT 12/10/2024 1:42 AM CDT us Anali Jeff MD HEMATOLOGY ORDERABLES Final Re sult Performing Organization Address [facility]/ZIP Code Phone Number [facility] [phone] [place] [address] [place] [address] * TSH (12/09/2024 9:40 AM CDT) TSH 3.70 0.40 - 4.50 mIU/L [facility] [employer] [facility] Comment: Test Performed at: [place] [address] [place] [address] [facility] Blood 12/09/2024 9:40 AM CDT 12/10/2024 1:42 AM CDT us Anali Jeff MD CHEMISTRY ORDERABLES Final Res ult [facility] [phone] [place] [address] [place] [phone] * (ABNORMAL) LIPID PANEL (12/09/2024 9:40 AM CDT) Pathologist [facility] CHOLESTEROL 189 <200 mg/dL [facility] HDL 49 > OR = 40 mg/dL [facility] TRIGLYCERIDE 242(H) <150 mg/dL [facility] Comment: If a non-fasting specimen was collected, consider repeat triglyceride testing on a fasting specimen if clinically indicated. Ana et al. J. of Clin. Lipidol. 2015;9:129-169. LDL CALCULATED 103(H) mg/dL (calc) [facility] Comment: Reference range: <100 Desirable range <100 mg/dL for primary prevention; <70 mg/dL for patients with CHD or diabetic patients with > or = 2 CHD risk factors. LDL-C is now calculated using the Alec calculation, which is a validated novel method providing better accuracy than the Friedewald equation in the estimation of LDL-C. Jose Miguel DALEY et al. YAYA. 2013;310(19): 0867-1771 (http://education.DrDoctor/faq/ZOE622) CHOL/HDL RATIO 3.9 <5.0 (calc) [facility] NON-HDL CHOLESTEROL 140(H) <130 mg/dL (calc) [facility] Comment: For patients with diabetes plus 1 major ASCVD risk factor, treating to a non-HDL-C goal of <100 mg/dL (LDL-C of <70 mg/dL) is considered a therapeutic option. Test Performed at: [place] [address] [address] [place] [phone] [facility] Blood 12/09/2024 9:40 AM CDT 12/10/2024 1:42 AM CDT us Anali Jeff MD CHEMISTRY ORDERABLES Final Res ult [facility] [phone] [place] [address] [address] [place] [phone] * (ABNORMAL) COMPREHENSIVE METABOLIC PANEL (12/09/2024 9:40 AM CDT) Pathologist [facility] GLUCOSE 104(H) 65 - 99 mg/dL [facility] Comment: Fasting reference interval For someone without known diabetes, a glucose value between 100 and 125 mg/dL is consistent with prediabetes and should be confirmed with a follow-up test. BUN 10 7 - 25 mg/dL [facility] [employer] [facility] CREATININE 0.64 0.60 - 1.24 mg/dL [facility] GFR 131 > OR = 60 mL/min/1. 73m2 [facility] BUN/CREAT RATIO SEE NOTE: (calc) [facility] Comment: Not Reported: BUN and Creatinine are within reference range. SODIUM 136 135 - 146 mmol/L [employer] [facility] POTASSIUM 4.8 3.5 - 5.3 mmol/L [facility] CHLORIDE 100 98 - 110 mmol/L [facility] [employer] [facility] CO2 30 20 - 32 mmol/L [facility] CALCIUM 9.7 8.6 - 10.3 mg/dL [facility] TOTAL PROTEIN 7.4 6.1 - 8.1 g/dL [facility] ALBUMIN 4.7 3.6 - 5.1 g/dL [facility] GLOBULIN 2.7 1.9 - 3.7 g/dL (calc) [facility] ALBUMIN/GLOBULIN RATIO 1.7 1.0 - 2.5 (calc) [facility] BILIRUBIN TOTAL 0.6 0.2 - 1.2 mg/dL [employer] [facility] ALKALINE PHOSPHATASE 63 36 - 130 U/L [facility] AST 21 10 - 40 U/L [facility] ALT 20 9 - 46 U/L [facility] Comment: Test Performed at: [place] [address] [address] [place] [phone] [facility] Blood 12/09/2024 9:40 AM CDT 12/10/2024 1:42 AM CDT us Anali Jeff MD CHEMISTRY ORDERABLES Final Res ult [facility] [phone] [facility] [employer] [place] [address] [address] [place] [phone] from Last 3 Months Insurance ALLEGIANCE OPEN ACCESS [facility] OPEN ACCESS
[2025-03-07 19:23] LABS: Alanine Aminotransferase 19 U/L (6-50); Albumin Level 4.9 g/dL (3.5-5.1); Alkaline Phosphatase 72 U/L (38-126); Anion Gap 11 mmol/L (4-12); Aspartate Amino Transferase 91 U/L (17-59); Bilirubin,Total 1.0 mg/dL (0.2-1.3); Blood Urea Nitrogen 9 mg/dL (9-20); Calcium 9.7 mg/dL (8.4-10.2); Carbon Dioxide 26 mmol/L (22-30); Chloride 102 mmol/L (98-107); Cholesterol 131 mg/dL (0-200); Estimated Glomerular Filt Rate > 60; Glucose 105 mg/dL (65-110); HDL Direct 40 mg/dL; Potassium 4.1 mmol/L (3.4-5.0); Sodium 139 mmol/L (137-145); Total Protein 8.5 g/dL (6.3-8.2); Triglycerides 206 mg/dL (<150)
[2025-03-07 19:33] LABS: Hemoglobin A1C 5.4 % (<5.7)
[2025-03-07 19:48] LABS: MALB Creatinine Ratio 7.7 mg/g (0-30)
== END 2025-03-07 06:50 | disposition home or self-care (01) ==
LOC: ANHBWCLAB 06:50
PROVIDERS: PCP Nurse Practitioner Adult Health; Visit Provider Nurse Practitioner Adult Health
DX: Z00.00 Encounter for general adult medical examination without abnormal findings (principal); E11.9 Type 2 diabetes mellitus without complications
CPT/HCPCS: 36415; 80053; 80061; 82043; 82565; 83036

== ENCOUNTER 2025-03-16 06:37 | Outpatient (CLI) | payer OTHER, SELFPAY ==
[2025-03-16 18:53] LABS: Alanine Aminotransferase 19 U/L (6-50); Albumin Level 4.8 g/dL (3.5-5.1); Alkaline Phosphatase 62 U/L (38-126); Aspartate Amino Transferase 64 U/L (17-59); Bilirubin,Total 1.2 mg/dL (0.2-1.3); Total Protein 8.1 g/dL (6.3-8.2)
== END 2025-03-16 06:38 | disposition home or self-care (01) ==
PROVIDERS: PCP Nurse Practitioner Adult Health; Visit Provider Nurse Practitioner Adult Health
DX: K76.0 Fatty (change of) liver, not elsewhere classified (principal)
CPT/HCPCS: 36415; 80076